=== PATIENT | male | born 1940 | race Two or more races ===

== ENCOUNTER 2017-08-25 11:47 | Emergency (ER) | payer MEDICARE ==
[~2017-08-25] VITALS: Ht 167.6 cm; Wt 64.9 kg
[2017-08-25 11:47] VITALS: BP 122/68
[2017-08-25 12:33] LABS: BASOPHILS % (AUTO) 0.9 % (0.0-2.0); EOSINOPHILS % (AUTO) 1.1 % (0.0-3.0); LYMPHOCYTES % (AUTO) 21.7 % (20.0-45.0); MEAN CORPUSCULAR HEMOGLOBIN 31.3 PG (27.0-31.0); MEAN CORPUSCULAR HGB CONC 31.4 G/DL (32.0-36.0); MEAN CORPUSCULAR VOLUME 100 FL (80-99); MEAN PLATELET VOLUME 8.9 FL (6.5-10.1); MONOCYTES % (AUTO) 8.1 % (1.0-10.0); NEUTROPHILS % (AUTO) 68.2 % (45.0-75.0); PLATELET COUNT 131 K/UL (150-450); RED CELL DISTRIBUTION WIDTH 11.5 % (11.6-14.8); WHITE BLOOD COUNT 6.3 K/UL (4.8-10.8)
[2017-08-25 12:53] LABS: ANION GAP 10 mmol/L (5-15); CALCIUM 9.1 MG/DL (8.5-10.1); CARBON DIOXIDE 25 MMOL/L (21-32); CHLORIDE 102 MMOL/L (98-107); CREATININE 0.7 MG/DL (0.55-1.30); POTASSIUM 4.2 MMOL/L (3.5-5.1); SODIUM 137 MMOL/L (136-145)
[2017-08-25 13:03] LABS: ALANINE AMINOTRANSFERASE 30 U/L (12-78); ALBUMIN/GLOBULIN RATIO 1.2 (1.0-2.7); ASPARTATE AMINO TRANSFERASE 24 U/L (15-37); TOTAL PROTEIN 6.6 G/DL (6.4-8.2)
[2017-08-25 13:30] VITALS: BP 129/68
[2017-08-25 13:35] VITALS: BP 129/68
[2017-08-25] MEDS ORDERED: OMEPRAZOLE20 M3 ORAL (13:35)
[2017-08-25] MEDS ORDERED: ATORVASTATIN CA40 MG ORAL (13:35)
[2017-08-25] MEDS ORDERED: PROPRANOLOL HCL20 MG ORAL (13:35)
[2017-08-25] MEDS ORDERED: GABAPENTIN300 MG ORAL (13:35)
[2017-08-25] MEDS ORDERED: IBUPROFEN600 MG ORAL (13:35)
[2017-08-25] MEDS ORDERED: TRAMADOL HCL50 MG ORAL (13:35)
--- NOTE | 2017-08-27 07:09 | Emergency Room Report ---
History of Present Illness General Chief Complaint: Dizziness Source: Patient Present Illness HPI Patient is a 76-year-old male who presented after a episode of increased dizziness while in the hot tub. The patient reportedly was sitting in a hot tub for over an hour when he became lightheaded. Patient states that he was awake the entire time and did not lose consciousness. The patient denies any past medical history. He denies any recent ill feeling. He reported feeling somewhat lightheaded. Patient denied any chest pain or palpitations or pre- existing cardiac disease. He denied any complaints of pain. Allergies: Coded Allergies: No Known Allergies (Unverified , 08/25/17) Patient History Past Medical History: see triage record Reviewed Nursing Documentation: PMH: Agreed, PSxH: Agreed Review of Systems All Other Systems: negative except mentioned in HPI Physical Exam Vital Signs Date Time Temp Pulse Resp B/P (MAP) Pulse Ox O2 Delivery O2 Flow Rate FiO2 08/25/17 11:33 98.1 110 16 90/60 98 Room Air Sp02 EP Interpretation: reviewed, normal General Appearance: normal inspection, well appearing, no apparent distress, alert, GCS 15, non-toxic Head: atraumatic ENT: normal ENT inspection, hearing grossly normal, normal voice Neck: normal inspection, full range of motion, supple, no bony tend Respiratory: normal inspection, lungs clear, normal breath sounds, no respiratory distress, no retraction, no wheezing Cardiovascular #1: regular rate, rhythm, no edema Gastrointestinal: normal inspection, normal bowel sounds, non tender, soft, no guarding, no hernia Genitourinary: no CVA tenderness Musculoskeletal: normal inspection, back normal, normal range of motion Neurologic: normal inspection, alert, oriented x3, responsive, speech normal Psychiatric: normal inspection, judgement/insight normal, mood/affect normal Skin: normal inspection, normal color, no rash Medical Decision Making Diagnostic Impression: Primary Impression: Near syncope Additional Impression: Vasovagal near syncope ER Course Patient presented for near syncope. Differential diagnosis included was not limited to have vasovagal episode, arrhythmia, pulmonary embolism, anemia, among others. Because of complexity of patient's case laboratory testing and imaging studies were ordered. Laboratory testing was unremarkable. Patient was noted to have unremarkable EKG. Patient was noted to have no dizziness during ER stay. The patient's syncopal episode is likely due to vasodilation from being in a hot tub. The patient is advised to follow up with primary care doctor in 1-2 days. Patient is advised to return if any worsening condition or if any changes in status that are concerning. Labs Test 08/25/17 12:05 White Blood Count 6.3 K/UL (4.8-10.8) Red Blood Count 4.10 M/UL (4.70-6.10) Hemoglobin 12.8 G/DL (14.2-18.0) Hematocrit 40.9 % (42.0-52.0) Mean Corpuscular Volume 100 FL (80-99) Mean Corpuscular Hemoglobin 31.3 PG (27.0-31.0) Mean Corpuscular Hemoglobin Concent 31.4 G/DL (32.0-36.0) Red Cell Distribution Width 11.5 % (11.6-14.8) Platelet Count 131 K/UL (150-450) Mean Platelet Volume 8.9 FL (6.5-10.1) Neutrophils (%) (Auto) 68.2 % (45.0-75.0) Lymphocytes (%) (Auto) 21.7 % (20.0-45.0) Monocytes (%) (Auto) 8.1 % (1.0-10.0) Eosinophils (%) (Auto) 1.1 % (0.0-3.0) Basophils (%) (Auto) 0.9 % (0.0-2.0) Sodium Level 137 MMOL/L (136-145) Potassium Level 4.2 MMOL/L (3.5-5.1) Chloride Level 102 MMOL/L (98-107) Carbon Dioxide Level 25 MMOL/L (21-32) Anion Gap 10 mmol/L (5-15) Blood Urea Nitrogen 7 mg/dL (7-18) Creatinine 0.7 MG/DL (0.55-1.30) Estimat Glomerular Filtration Rate mL/min (>60) Glucose Level 106 MG/DL (74-106) Calcium Level 9.1 MG/DL (8.5-10.1) Total Bilirubin 0.7 MG/DL (0.2-1.0) Aspartate Amino Transf (AST/SGOT) 24 U/L (15-37) Alanine Aminotransferase (ALT/SGPT) 30 U/L (12-78) Alkaline Phosphatase 62 U/L (46-116) Troponin I < 0.017 ng/mL (0.000-0.056) Pro-B-Type Natriuretic Peptide 145 pg/mL (0-125) Total Protein 6.6 G/DL (6.4-8.2) Albumin 3.6 G/DL (3.4-5.0) Globulin 3.0 g/dL Albumin/Globulin Ratio 1.2 (1.0-2.7) Last Vital Signs Date Time Temp Pulse Resp B/P (MAP) Pulse Ox O2 Delivery O2 Flow Rate FiO2 08/25/17 13:35 98.1 68 16 129/68 98 Room Air 71 Status: improved Disposition: HOME, SELF-CARE Condition: Stable Patient Instructions: Syncope, [id number] Jah Monge Aug 27, 2017 07:08
--- NOTE | 2017-09-02 17:25 | Cardiology Report ---
APPROVED REPORT EKG Measurement Heart [id number] AL [id number] Unusual P axis, possible ectopic atrial rhythm Abnormal ECG
== END 2017-08-25 13:35 | disposition home or self-care (01) ==
LOC: EDBD 11:47 → EMR 12:30
DX: R55 Syncope and collapse (principal); R42 Dizziness and giddiness
CPT/HCPCS: 36415; 80053; 83880; 84484; 85025; 93005; 99283